=== PATIENT | male | born 1950 | race Caucasian/White ===

== ENCOUNTER → 2018-01-04 | Outpatient (CLI) | payer MEDICARE, BC ==
[~2018-01-04] MED LIST: ASPIRIN E.C. 8181 MG PO; CALCIUM600 M2 PO; COLACE100 MG/10 PO; CRESTOR; FISH OIL CONC1000 MG PO; GARLIC OIL1 MG PO; GLUCOSAMINE & C1 CAP PO; HUMALOG100 U/ML SQ; INSULIN HUMA100 U/ML IJ; LANTUS100 U/ML; LANTUS100 U/ML SQ; MULTIPLE VITAMI1 TAB PO; PEPCID 20MG TAB20 MG PO; PLAVIX 75MG TAB75 MG PO; SENOKOT S 50 MG1 TAB PO; SIMVASTATIN40 MG PO; VITA-MIN1 CAP PO; VITAMIN C BUFF500 MG PO; VITAMIN E1000 U/CAP PO; ZESTRIL20 MG PO; ZOCOR PO; ZOCOR40 MG PO
== END ==
LOC: COL.RAD 01-03 10:30
DX: D64.9 Anemia, unspecified (principal)

== ENCOUNTER 2019-02-16 19:29 | Emergency (ER) | payer MEDICARE, BC ==
[2019-02-16 20:20] LABS: BASO # 0.1 (0.0-0.2); EOS # 0.1 (0.0-0.7); EOS % 1.2 % (0-4.0); GRAN % 79.6 % (42.2-75.2); HEMOGLOBIN 11.1 g/dl (13.5-18.0); LYMPH # 0.9 (1.2-3.4); LYMPH % 9.8 % (20.0-51.0); MEAN CELL VOLUME 93 fl (80.0-100.0); MEAN CORPUSCULAR HEMOGLOBIN 31 pg (27.0-31.0); MEAN CORPUSCULAR HGB CONC 33 g/dl (33.0-37.0); MEAN PLATELET VOLUME 12.1 fl (7.4-10.4); MONO # 0.7 (0.1-0.6); MONO % 8.1 % (1.7-9.3); PLATELET COUNT 158 K/mm3 (130-400); RED BLOOD COUNT 3.61 M/mm3 (4.20-5.60); REDCELL DISTRIBUTION WIDTH-CV 11.7 % (11.5-14.5)
[2019-02-16 20:22] LABS: HEMATOCRIT 33.4 % (42.0-52.0)
[2019-02-16 20:51] LABS: ALBUMIN 3.7 gm/dL (3.5-5.0); BILIRUBIN,TOTAL 0.4 mg/dL (0.0-1.0); CALCIUM 8.5 mg/dL (8.4-10.2); CREATININE, serum 1.45 (0.66-1.25); POTASSIUM 4.1 mmol/L (3.4-5.0); TOTAL PROTEIN 6.4 gm/dL (6.4-8.2)
[2019-02-16 21:02] LABS: TROPONIN-I 0.013 ng/mL (0.000-0.035)
[2019-02-16 23:42] VITALS: BP 131/63; PULSE 74; TEMP 98.2
== END 2019-02-16 23:57 | disposition home or self-care (01) ==
LOC: COL.ER 19:29
PROVIDERS: Emergency Medicine
DX: R55 Syncope and collapse (principal); E11.9 Type 2 diabetes mellitus without complications; I10 Essential (primary) hypertension; E78.5 Hyperlipidemia, unspecified; Z86.73 Personal history of transient ischemic attack (TIA), and cerebral infarction without residual deficits; Z79.4 Long term (current) use of insulin; Z79.02 Long term (current) use of antithrombotics/antiplatelets

== ENCOUNTER 2019-10-13 07:58 | Day surgery (SDC) | payer MEDICARE, BC ==
[~2019-10-13] VITALS: Ht 180.3 cm; Wt 82.3 kg
[2019-10-13] VITALS (300 sets, daily range): BP systolic 110–163; BP diastolic 56–79; PULSE 49–63; TEMP 98–99.3; O2SAT 80–100
[~2019-10-13 07:58] MED LIST changes: +CALCIUM CARBON650 M2 PO; -CALCIUM600 M2 PO; -FISH OIL CONC1000 MG PO; +FISH OIL CONCEN1 SG2 PO; +MULTIPLE VITAMI1 TA5 PO; -MULTIPLE VITAMI1 TAB PO; -VITAMIN C BUFF500 MG PO; +VITAMINC500CH PO; -ZESTRIL20 MG PO; +ZESTRIL40 MG PO
[2019-10-13 09:23] LABS: HEMOGLOBIN 11.7 g/dl (13.5-18.0); MEAN CELL VOLUME 92 fl (80.0-100.0); MEAN CORPUSCULAR HEMOGLOBIN 31 pg (27.0-31.0); MEAN CORPUSCULAR HGB CONC 34 g/dl (33.0-37.0); MEAN PLATELET VOLUME 11.6 fl (7.4-10.4); PLATELET COUNT 145 K/mm3 (130-400); RED BLOOD COUNT 3.79 M/mm3 (4.20-5.60)
[2019-10-13 09:25] LABS: HEMATOCRIT 34.9 % (42.0-52.0)
[2019-10-13] MEDS ORDERED: LEVEMIR FLEX100 U/ML SQ (09:25)
[2019-10-13] MEDS ORDERED: TOPROL XL 25MG25 MG PO (09:27)
[2019-10-13] MEDS ORDERED: NORVASC 5MG5 MG/TAB PO (09:29)
[2019-10-13] MEDS ORDERED: CRESTOR20 MG PO (09:29)
[2019-10-13 09:30] LABS: CALCIUM 9.1 mg/dL (8.4-10.2); CREATININE, serum 1.15 (0.66-1.25); INR 1.1 (0.8-3.0); POTASSIUM 4.5 mmol/L (3.4-5.0); PROTHROMBIN TIME 12.4 SECONDS (9.7-12.8)
[2019-10-13] MEDS ORDERED: HCTZ12.5TAB PO (09:30)
[2019-10-13] MEDS ORDERED: CLARITIN 1010 MG/TAB PO (09:31)
[2019-10-13] MEDS ORDERED: PRILOSEC 20MG20 MG PO (09:31)
[2019-10-13 09:32] LABS: PARTIAL THROMBOPLASTIN TIME 27.6 SECONDS (26.0-37.0)
[2019-10-13] MEDS ORDERED: HYTRIN 2MG CAPSU2 MG PO (09:32)
[2019-10-13] MEDS ORDERED: NIACIN 100100 MG/TAB PO (09:33)
--- NOTE | 2019-10-13 10:13 | NUR ---
SEE MERGE DOCUMENTATION FOR MEDICATION ADMINISRATION TIMES AND INTRA/POST PROCEDURE SEDATION ASSESSMENTS. RIGHT HAND BARBEAU TEST POSITIVE.
--- NOTE | 2019-10-13 12:00 | NUR ---
Pt arrived from cath lab tech to unit at this time. R radial cath site clean, dry, et intact with Radial compression band in place with 15 mls of air. Report recieved from RASHMI Johnson.
--- NOTE | 2019-10-13 14:04 | NUR ---
Nurse Leader met with the patient to complete initial intake. The patient lives in [place] with his , Maryam. The patient denies DME use and is independent with ADLs. The patient's PCP is Dr. Dai and patient receives medications from [facility] with no difficulties. The patient has advanced directives in the EMR and they designate Maryam. The patient has no questions or concerns at this time and plans to return home at discharge. The patient will be transported home by his or daughter. There are no additional needs at this time.
--- NOTE | 2019-10-13 16:00 | NUR ---
Pt resting comfortably in bed. Denies pain or any other discomforts. R radial cath site clean, dry, et intact with no drainage or hematoma noted. Vitals stable at this time. Bed in low position, call light within reach, will continue to monitor.
--- NOTE | 2019-10-13 19:10 | NUR ---
Right radial site assessed. No hematoma, pulse plus 2 on palpation. Reports some soreness around site but no other concerns reported at this time. All questions and concerns addressed at this time.
--- NOTE | 2019-10-13 22:45 | NUR ---
Assisted up to use the bathroom. Stand by assist needed. Left foot drags slighty due to previous stroke. Zavala hand slitter socks utilized for ambulation. Denies any other concerns or needs at this time.
[2019-10-14] VITALS (108 sets, daily range): BP systolic 136–147; BP diastolic 61–82; PULSE 53–62; TEMP 98–98.5; O2SAT 94–99
[2019-10-14 06:21] LABS: BASO # 0.1 (0.0-0.2); BASO % 1.1 % (0.0-2.0); EOS # 0.1 (0.0-0.7); EOS % 2.2 % (0-4.0); GRAN # 3.8 (1.4-6.5); GRAN % 69.6 % (42.2-75.2); HEMOGLOBIN 11.1 g/dl (13.5-18.0); LYMPH # 0.8 (1.2-3.4); LYMPH % 14.9 % (20.0-51.0); MEAN CELL VOLUME 92 fl (80.0-100.0); MEAN CORPUSCULAR HEMOGLOBIN 30 pg (27.0-31.0); MEAN CORPUSCULAR HGB CONC 33 g/dl (33.0-37.0); MEAN PLATELET VOLUME 12.3 fl (7.4-10.4); MONO # 0.7 (0.1-0.6); PLATELET COUNT 135 K/mm3 (130-400); REDCELL DISTRIBUTION WIDTH-CV 12.1 % (11.5-14.5)
[2019-10-14 06:27] LABS: HEMATOCRIT 34.1 % (42.0-52.0)
[2019-10-14 06:32] LABS: CALCIUM 8.7 mg/dL (8.4-10.2); CREATININE, serum 1.15 (0.66-1.25); POTASSIUM 4.1 mmol/L (3.4-5.0)
--- NOTE | 2019-10-14 07:24 | NUR ---
Bedside report received from Ashley CARABALLO and care resumed.
--- NOTE | 2019-10-14 09:15 | NUR ---
Cherri with cardiology in to see pt at this time as well as rigger chief.
[2019-10-14] MEDS ORDERED: NITRO-DUR0.4 MG/PAT TD (10:49)
[2019-10-14] MEDS ORDERED: ASPIRIN E.C. 8181 MG PO (10:50)
[2019-10-14] MEDS ORDERED: PEPCID40 MG PO (10:51)
[2019-10-14] MEDS ORDERED: TOPROL XL 50MG50 MG PO (10:52)
--- NOTE | 2019-10-14 11:00 | NUR ---
Dr Alexandra in to see pt. Will plan for discharge home today.
--- NOTE | 2019-10-14 11:39 | NUR ---
Pts IV dc'd and pt dressed. Pt given discharge instructions and stated understanding. Waiting on ride at this time for discharge.
--- NOTE | 2019-10-14 11:58 | NUR ---
The patient discharged home today, 10/13. There are no additional needs at this time.
== END 2019-10-14 12:00 | disposition home or self-care (01) ==
LOC: COL.CAR 07:58 → ICU 12:49 → COL.CAR 10-14 12:00
PROVIDERS: Internal Medicine Cardiovascular Disease
DX: I25.10 Atherosclerotic heart disease of native coronary artery without angina pectoris (principal); I25.5 Ischemic cardiomyopathy; R94.31 Abnormal electrocardiogram [ECG] [EKG]; I12.9 Hypertensive chronic kidney disease with stage 1 through stage 4 chronic kidney disease, or unspecified chronic kidney disease; E11.22 Type 2 diabetes mellitus with diabetic chronic kidney disease; N18.9 Chronic kidney disease, unspecified; E11.42 Type 2 diabetes mellitus with diabetic polyneuropathy; E11.319 Type 2 diabetes mellitus with unspecified diabetic retinopathy without macular edema; E78.49 Other hyperlipidemia; I65.22 Occlusion and stenosis of left carotid artery; Z79.02 Long term (current) use of antithrombotics/antiplatelets; Z86.73 Personal history of transient ischemic attack (TIA), and cerebral infarction without residual deficits; Z79.4 Long term (current) use of insulin
CPT/HCPCS: OP; C9600; J0583; J1644; J1815; J2250; J3010; Q9967

== ENCOUNTER 2020-01-19 16:18 | Outpatient (RCR) | payer MEDICARE, BC ==
[~2020-01-19 16:18] MED LIST changes: +CLARITIN 1010 MG/TAB PO; +CRESTOR20 MG PO; +HCTZ12.5TAB PO; +HYTRIN 2MG CAPSU2 MG PO; +LEVEMIR FLEX100 U/ML SQ; +NIACIN 100100 MG/TAB PO; +NITRO-DUR0.4 MG/PAT TD; +NORVASC 5MG5 MG/TAB PO; +PEPCID40 MG PO; +PRILOSEC 20MG20 MG PO; +TOPROL XL 25MG25 MG PO; +TOPROL XL 50MG50 MG PO
== END 2020-01-25 | disposition home or self-care (01) ==
LOC: COL.CR
DX: Z48.812 Encounter for surgical aftercare following surgery on the circulatory system (principal); Z95.5 Presence of coronary angioplasty implant and graft

== ENCOUNTER → 2020-04-21 | Outpatient (RCR) | payer SELFPAY | END | disposition home or self-care (01) | LOC: COL.CR | DX: Z02.89 Encounter for other administrative examinations (principal) ==

== ENCOUNTER → 2020-07-05 | Outpatient (RCR) | payer SELFPAY | END | disposition home or self-care (01) | LOC: COL.CR | DX: Z02.89 Encounter for other administrative examinations (principal) ==

== ENCOUNTER → 2020-07-06 | Outpatient (CLI) | payer MEDICARE | LOC: ZCOL.LAB 13:21 | DX: Z01.89 Encounter for other specified special examinations (principal) ==

== ENCOUNTER 2020-10-01 17:11 | Outpatient (RCR) | payer SELFPAY | END 2020-10-05 | disposition home or self-care (01) | LOC: COL.CR | DX: Z02.89 Encounter for other administrative examinations (principal) ==

== ENCOUNTER 2020-11-18 15:45 | Outpatient (RCR) | payer MEDICARE, BC | END 2020-11-24 10:35 | disposition home or self-care (01) | LOC: WSPT 15:45 | DX: I69.30 Unspecified sequelae of cerebral infarction (principal); M62.81 Muscle weakness (generalized); M25.561 Pain in right knee; M25.562 Pain in left knee ==

== ENCOUNTER → 2021-01-19 | Outpatient (CLI) | payer MEDICARE, BC | LOC: COL.RAD 12:15 | DX: R29.898 Other symptoms and signs involving the musculoskeletal system (principal); M62.81 Muscle weakness (generalized); I63.9 Cerebral infarction, unspecified | CPT/HCPCS: A9585 ==

== ENCOUNTER 2021-08-16 07:27 | Outpatient (CLI) | payer MEDICARE, BC ==
[~2021-08-16] VITALS: Ht 180.3 cm; Wt 86.8 kg
[~2021-08-16 07:27] MED LIST changes: -CALCIUM CARBON650 M2 PO; -HUMALOG100 U/ML SQ; +NOVOLOG FLEX100 U/ML SQ; +OSCAL 500 TAB500 MG PO; +VITAMIN E 400 U4001 PO; -VITAMIN E1000 U/CAP PO
[2021-08-16 08:27] VITALS: BP 162/71; PULSE 50; TEMP 99.1
[2021-08-16 08:47] LABS: MEAN CELL VOLUME 92 fl (80.0-100.0); MEAN CORPUSCULAR HEMOGLOBIN 30 pg (27-31); MEAN CORPUSCULAR HGB CONC 33 g/dl (33.0-37.0); MEAN PLATELET VOLUME 11.7 fl (7.4-10.4); PLATELET COUNT 150 K/mm3 (130-400); RED BLOOD COUNT 3.62 M/mm3 (4.20-5.60); REDCELL DISTRIBUTION WIDTH-CV 12.4 % (11.5-14.5)
[2021-08-16 08:49] LABS: HEMATOCRIT 33.3 % (42.0-52.0)
[2021-08-16 08:54] LABS: INR 1.2 (0.8-3.0); PROTHROMBIN TIME 13.4 SECONDS (9.7-12.8)
[2021-08-16] MEDS ORDERED: LASIX 20MG TABL20 MG PO (08:58)
[2021-08-16] MEDS ORDERED: TRESIBA FL200 UNIT/1 SQ (08:58)
[2021-08-16] MEDS ORDERED: K-TAB10 PO (08:59)
[2021-08-16 09:06] LABS: CALCIUM 8.7 mg/dL (8.4-10.2); CREATININE, serum 1.3 mg/dL (0.72-1.25); POTASSIUM 4.2 mmol/L (3.5-4.5)
[2021-08-16 10:10] VITALS: BP 142/59; PULSE 46
--- NOTE | 2021-08-16 10:10 | NUR ---
REPORT FROM JUAN CARABALLO, PT IS AWAKE AND ALERT, DAUGHTER IN ROOM, TAKES DRINK AND SNACK, HAS NO C/O
[2021-08-16 10:25] VITALS: BP 150/70; PULSE 45
[2021-08-16 10:40] VITALS: BP 164/67; PULSE 45
--- NOTE | 2021-08-16 10:45 | NUR ---
PT UP TO B/R WITH STAND BY ASSIST, VOIDED AND SENT UA TO LAB ORDERED, PT SITS ON SIDE OF BED, DR TERRY INTO SEE PT AND DAUGHTER, REVIEWED DISCHARGE INST. WITH PT ON MODERATE SEDATION, APPT AND ACTIVITY WITH VERBAL UNDERSTANDING. IV D'CD INTACT, PT DRESSED AND DISCHARGED VIA W/C AT 1105 TO CAR
== END 2021-08-16 11:00 | disposition home or self-care (01) ==
LOC: COL.RAD 07:27
PROVIDERS: Internal Medicine Adult Congenital Heart Disease
DX: I08.2 Rheumatic disorders of both aortic and tricuspid valves (principal)
CPT/HCPCS: J2704

== ENCOUNTER 2021-08-24 11:49 | Outpatient (RCR) | payer SELFPAY ==
[~2021-08-24 11:49] MED LIST changes: +K-TAB10 PO; +LASIX 20MG TABL20 MG PO; +TRESIBA FL200 UNIT/1 SQ
== END 2021-08-30 ==
LOC: COL.CR
DX: Z12.31 Encounter for screening mammogram for malignant neoplasm of breast (principal)

== ENCOUNTER 2021-09-28 14:39 | Outpatient (RCR) | payer SELFPAY | END 2021-09-29 | LOC: COL.CR | DX: Z29.8 Encounter for other specified prophylactic measures (principal) ==

== ENCOUNTER 2021-10-28 13:02 | Outpatient (RCR) | payer SELFPAY | END 2021-10-30 | LOC: COL.CR | DX: Z29.8 Encounter for other specified prophylactic measures (principal) ==

== ENCOUNTER → 2021-11-30 | Outpatient (RCR) | payer SELFPAY | LOC: COL.CR | DX: Z29.8 Encounter for other specified prophylactic measures (principal) ==